=== PATIENT | male | born 2000 | race Hispanic/Latino ===

== ENCOUNTER 2021-11-15 12:18 | Inpatient (IN) | payer OTHER, SELFPAY ==
[2021-11-15] MEDS ORDERED: Promethazine HCl 25 MG/ML VIAL IM PRN ×2 (15:48→19:14)
[2021-11-15] MEDS ORDERED: hydrALAZINE 20 MG/ML VIAL SLOW IVP PRN (15:48)
[2021-11-15] MEDS ORDERED: Ondansetron PF 4 MG/2 ML Vial IVP PRN (15:48)
[2021-11-15] MEDS ORDERED: traMADol HCl 50 MG TAB PO PRN (15:50)
[2021-11-15] MEDS ORDERED: Lidocaine 1% w/Epinephrine 1:100K 20 ML VIAL ONE (15:58)
[2021-11-15] MEDS ORDERED: Bupivacaine PF 0.5% 30 ML VIAL ONE (15:58)
[2021-11-15] MEDS ORDERED: Midazolam HCl 2 mg/2 ml Vial ONE (16:07)
[2021-11-15] MEDS ORDERED: fentaNYL Citrate/PF 100 MCG/2 ML SYRINGE ONE (16:08)
[2021-11-15] MEDS ORDERED: HYDROmorphone 0.5 MG/0.5 ML SYRINGE ONE (16:08)
[2021-11-15] MEDS ORDERED: Ketamine 50 MG/ML (10ML VIAL) ONE (16:08)
[2021-11-15] MEDS ORDERED: Famotidine/PF 20 mg/2ml Vial ONE (16:09)
[2021-11-15] MEDS ORDERED: Metoclopramide HCl 10 MG/2 ML VIAL ONE (16:26)
[2021-11-15] MEDS ORDERED: Glycopyrrolate 0.2 MG/ML 5 ML SYRINGE ONE (16:26)
[2021-11-15] MEDS ORDERED: Rocuronium Bromide 10 MG/ML (10ML VIAL) ONE (16:26)
[2021-11-15] MEDS ORDERED: Dexamethasone 20 MG/5 ML VIAL ONE (16:26)
[2021-11-15] MEDS ORDERED: Lidocaine 1% PF 5 ML VIAL ONE (16:26)
[2021-11-15] MEDS ORDERED: Ondansetron PF 4 MG/2 ML Vial ONE (16:26)
[2021-11-15] MEDS ORDERED: Ketorolac Tromethamine 30 MG/ML VIAL ONE (16:26)
[2021-11-15] MEDS ORDERED: PROPOFOL 200 MG/20 ML VIAL ONE (16:26)
[2021-11-15] MEDS ORDERED: Succinylcholine 200 MG/10 ml SYRINGE FS ONE (16:26)
[2021-11-15] MEDS ORDERED: Iopamidol 30 ML ONE (17:43)
[2021-11-15] MEDS ORDERED: Ibuprofen 200 MG TAB PO PRN (17:48)
[2021-11-15] MEDS ORDERED: Ondansetron HCl/PF 4 MG/2 ML Vial IVP PRN (19:14)
[2021-11-15] MEDS ORDERED: PACU-Morphine 4MG/ML VIAL SLOW IVP PRN (19:14)
[2021-11-15] MEDS ORDERED: Meperidine HCl/PF 25 MG/ML VIAL SLOW IVP PRN (19:14)
[2021-11-15] MEDS ORDERED: Morphine Sulfate 2 MG/ML SYRINGE SLOW IVP PRN (19:14)
[2021-11-15] MEDS ORDERED: HYDROmorphone 2 MG/ML VIAL SLOW IVP PRN (19:14)
[2021-11-15] MEDS ORDERED: Promethazine HCl 25 MG/ML VIAL IVPB PRN (19:14)
[2021-11-15] MEDS ORDERED: Famotidine/PF 20 mg/2ml Vial SLOW IVP SCH (21:00)
[2021-11-15] MEDS: Acetaminophen 325 MG TAB PO SCH ×2 (22:19→23:34)
[2021-11-15] MEDS: traMADol HCl 50 MG TAB PO SCH ×2 (22:43→23:25)
[2021-11-15] MEDS ORDERED: Famotidine 40 MG/4 ML VIAL SLOW IVP SCH (23:15)
[2021-11-15] MEDS: Senokot S 8.6-50 MG TAB PO SCH (23:25)
[2021-11-15] MEDS: Sodium Chloride 0.9% 1,000 ML IV SCH (23:43)
[2021-11-16 00:44] VITALS: BMI 26.9
[2021-11-16] MEDS: Sodium Chloride 0.9% 1,000 ML IV SCH (03:46)
[2021-11-16] MEDS: Acetaminophen 325 MG TAB PO SCH ×2 (03:46→09:53)
[2021-11-16 03:54] VITALS: BP 123/77; TEMP 97.8
[2021-11-16] MEDS: traMADol HCl 50 MG TAB PO SCH (05:17)
[2021-11-16 05:42] LABS: #Monocytes 0.6 thou/uL (0.11-0.59); #Neutrophils 8.9 thou/uL (1.40-6.50); %Basophils 0.1 % (0.0-1.0); %Lymphocytes 9.3 % (21.0-51.0); %Monocytes 5.4 % (0.0-10.0); %Neutrophils 85.2 % (42.0-75.0); Hemoglobin 13.9 g/dL (14.0-18.0); Mean Corpuscular HGB CONC 33.8 g/dL (32.0-36.0); Mean Corpuscular Hemoglobin 29.4 pg (27.0-31.0); Mean Corpuscular Volume 86.8 fL (78.0-98.0); Mean Platelet Volume 7.3 fL (7.4-10.4); Platelet Count 254 thou/uL (130-400); RBC Distribution Width 11.9 % (11.5-14.5); Red Blood Cell (RBC) Count 4.72 mill/uL (4.70-6.10); White Blood Cell (WBC) Count 10.5 thou/uL (4.8-10.8)
[2021-11-16 06:06] LABS: Anion Gap 13 mmol/L (10-20); BUN (Urea Nitrogen) 9 mg/dL (8.9-20.6); Calc. Creatinine Clearance 194 mL/min (70-130); Calcium 8.8 mg/dL (7.8-10.44); Carbon Dioxide 23 mmol/L (22-29); Chloride 106 mmol/L (98-107); Glucose 134 mg/dL (70-105); Magnesium 1.8 mg/dL (1.6-2.6); Potassium 4.2 mmol/L (3.5-5.1); Sodium 138 mmol/L (136-145)
[2021-11-16 06:09] LABS: ALT (SGPT) 119 U/L (8-55); AST (SGOT) 36 U/L (5-34); Albumin 3.9 g/dL (3.5-5.0); Alkaline Phosphatase 158 U/L (40-110); Bilirubin, Direct 0.4 mg/dL (0.1-0.3); Bilirubin, Total 0.8 mg/dL (0.2-1.2); Phosphorus 2.8 mg/dL (2.3-4.7); Protein, Total 6.7 g/dL (6.0-8.3)
[2021-11-16] MEDS ORDERED: Polyethylene Glycol 3350 17 GM Packet PO SCH (09:00)
[2021-11-16] MEDS ORDERED: Famotidine 40 MG/4 ML VIAL SLOW IVP SCH (09:00)
[2021-11-16] MEDS ORDERED: Enoxaparin Sodium 40 MG/0.4 ML SYRINGE SC SCH (09:00)
[2021-11-16] MEDS: Senokot S 8.6-50 MG TAB PO SCH (09:54)
== END 2021-11-16 11:18 | disposition home or self-care (01) | DRG 419 ==
LOC: SDC 12:18 → SJJU 17:45
PROVIDERS: ADMIT Surgery; ATTEND Surgery
PROC: 0FT44ZZ Resection of Gallbladder, Percutaneous Endoscopic Approach (ICD-10-PCS; principal; 2021-11-15)
PROC: BF131ZZ Fluoroscopy of Gallbladder and Bile Ducts using Low Osmolar Contrast (ICD-10-PCS; 2021-11-15)
DX: K80.12 Calculus of gallbladder with acute and chronic cholecystitis without obstruction (principal)
CPT/HCPCS: 36415; 47532; 80048; 80076; 83735; 84100; 85025; 88304; C1713; J1100; J1170; J1650; J1885; J2250; J2405; J2704; J2765; J7050; Q9967; S0020; S0028